=== PATIENT | female | born 1950 | race Caucasian/White ===

== ENCOUNTER 2016-08-11 06:25 | Day surgery (SDC) | payer MEDICARE, BC ==
[~2016-08-11 06:25] MED LIST: BUPIVACAINE HCL 0.75% INJ/PF (7.5 MG/1 ML) 10 ML SDV OS PRN; KETOROLAC TROMETHAMINE 0.45% 4 DROP/0.4 ML DROPERETTE OS PRN; LIDOCAINE 4% INJ/PF (40 MG/ML) 5 ML AMPUL OS PRN
[2016-08-11] MEDS ORDERED: MIDAZOLAM 2 MG/2 ML INJ ONE (06:44)
[2016-08-11] MEDS ORDERED: FENTANYL CITRATE INJ/PF 100 MCG/2 ML AMPUL ONE (06:44)
[2016-08-11] MEDS: TROPICAMIDE 1% OPH SOLN 3 ML OS PRN ×3 (06:44→07:21)
[2016-08-11] MEDS: CYCLOPENTOLATE 0.2%/PHENYLEPHRINE 1% OPH SOLN 2 ML OS PRN ×3 (06:44→07:21)
[2016-08-11] MEDS: BESIFLOXACIN HCL 0.6% OPH SUSP 5 ML BOTTLE OS PRN ×4 (06:45→08:01)
[2016-08-11] MEDS: TETRACAINE HCL 0.5% OPH SOLN 0.6 ML DROPERETTE OS PRN ×2 (06:46→07:22)
[2016-08-11] MEDS ORDERED: CHONDR SU A NA/HYALUR INTRAOC KIT (SURGICARE) ONE (07:13)
[2016-08-11] MEDS ORDERED: PHENYLEPHRINE/KETOROLAC 1%-0.3% 4 ML VIAL ONE (07:14)
--- NOTE | 2016-08-11 12:05 | [facility] DISCHARGE SUMMARY E ---
[facility] Discharge Summary NAME: ELYSSA WONG AGE: 66Y ADMITTED: 08/11/2016 DISCHARGED: 08/11/2016 PREOPERATIVE DIAGNOSIS: Cataract, left eye. POSTOPERATIVE DIAGNOSIS: Cataract, left eye. HOSPITAL COURSE: The patient is a 66-year-old lady who underwent uneventful cataract extraction with intraocular lens implant, left eye, on 08/11/2016. She will be discharged to home. She was instructed to resume preoperative medications, take Tylenol as needed for discomfort, to keep her eye shielded, to use Besivance, Durezol, and Ilevro at 3 p.m. and 8 p.m., and to followup in my office in 1 day. DICTATING PHYSICIAN: SANCHO BESALEY M.D. [id number] PHY#: [id number] ID: [id number] JOB#: [id number] ACCT: [id number] cc:SANCHO BEASLEY M.D. >
--- NOTE | 2016-08-11 12:14 | [facility] OPERATIVE REPORT E ---
[facility] Operative Report NAME: ELYSSA WONG AGE: 66Y DATE OF SURGERY: 08/11/2016 ROOM: PREOPERATIVE DIAGNOSIS: Cataract, left eye. POSTOPERATIVE DIAGNOSIS: Cataract, left eye. PROCEDURE PERFORMED: Phacoemulsification with posterior chamber intraocular lens, left eye. SURGEON: Joanne Beasley MD ANESTHESIA: Topical with MAC. INDICATIONS FOR SURGERY: Difficulty driving at night due to glare. Best corrected visual acuity 20/30. PROCEDURE: The patient was brought to the operating room and placed on the operative table. Following tetracaine drops, topical anesthesia was administered. This consisted of instrument wipe pledgets soaked in a solution of 4% Xylocaine mixed with 0.75% Marcaine in a 1:2 ratio. A 2 x 1 cm pledget was placed in the superior fornix. A 1 x 1 cm pledget was placed in the inferior fornix. The eye was patched shut for 5 minutes. The patch was removed. The eye was sterilely prepped and draped in the usual manner. Lid speculum was placed in the eye. The pledgets were removed. 4-0 black silk sutures were placed around the superior and the inferior rectus muscles to be used as traction. A conjunctival peritomy was made at the 10 o'clock position. Hemostasis was obtained with bipolar cautery. A posterior limbal groove was created using a crescent knife and dissected anteriorly towards the cornea. A sharp point blade was used to create a paracentesis site at the 2 o'clock position. A 2.4 mm keratome was used to enter the anterior chamber through the groove. Viscoelastic was injected into the anterior chamber. An anterior capsulotomy was performed using Utrata forceps in a capsulorrhexis fashion. Hydrodissection and hydrodelineation were performed. Phacoemulsification was performed in ewndgq-kda-jokamso technique. Total phaco time 50 seconds. Following this, the I/A unit was used to remove residual cortex. Viscoelastic was injected into the capsular bag. Intraocular lens model SN60WF, 23.0 diopters, serial number [id number] was placed in the capsular bag. The I/A unit was used to remove residual viscoelastic. The wound was seen to be watertight under high and low pressure, and no sutures were placed. The intraocular lens was well centered. The pressure was adjusted in the eye to normal pressure. The 4-0 black silk sutures and lid speculum were removed. The eye was shielded after Besivance drops were placed. The patient tolerated the procedure well and was sent to the recovery room in good condition. DICTATING PHYSICIAN: JOANNE BEASLEY M.D. [id number] PHY#: [id number] ID: [id number] JOB#: [id number] ACCT: [id number] cc:JOANNE BEASLEY M.D. >
== END 2016-08-11 09:02 | disposition home or self-care (01) ==
LOC: SC 06:25
PROVIDERS: ATTEND Ophthalmology
PROC: 08RJ3JZ Replacement of Right Lens with Synthetic Substitute, Percutaneous Approach (ICD-10-PCS; principal; 2016-08-11 07:30)
DX: H25.813 Combined forms of age-related cataract, bilateral (principal); H16.223 Keratoconjunctivitis sicca, not specified as Sjogren's, bilateral; I63.411 Cerebral infarction due to embolism of right middle cerebral artery; M06.09 Rheumatoid arthritis without rheumatoid factor, multiple sites; E78.00 Pure hypercholesterolemia, unspecified; M19.90 Unspecified osteoarthritis, unspecified site; K21.9 Gastro-esophageal reflux disease without esophagitis; I10 Essential (primary) hypertension; Z86.73 Personal history of transient ischemic attack (TIA), and cerebral infarction without residual deficits; Z88.5 Allergy status to narcotic agent; Z88.2 Allergy status to sulfonamides; Z88.8 Allergy status to other drugs, medicaments and biological substances
CPT/HCPCS: 66984; V2632; J2250; J3490 ×3; A9270; J3010; C9447; 142

== ENCOUNTER 2016-09-15 06:54 | Day surgery (SDC) | payer MEDICARE, BC ==
[~2016-09-15 06:54] MED LIST changes: +BUPIVACAINE HCL 0.75% INJ/PF (7.5 MG/1 ML) 10 ML SDV OD PRN; -BUPIVACAINE HCL 0.75% INJ/PF (7.5 MG/1 ML) 10 ML SDV OS PRN; +KETOROLAC TROMETHAMINE 0.45% 4 DROP/0.4 ML DROPERETTE OD PRN; -KETOROLAC TROMETHAMINE 0.45% 4 DROP/0.4 ML DROPERETTE OS PRN; +LIDOCAINE 4% INJ/PF (40 MG/ML) 5 ML AMPUL OD PRN; -LIDOCAINE 4% INJ/PF (40 MG/ML) 5 ML AMPUL OS PRN
[2016-09-15] MEDS: TROPICAMIDE 1% OPH SOLN 3 ML OD PRN ×3 (07:08→07:39)
[2016-09-15] MEDS: CYCLOPENTOLATE 0.2%/PHENYLEPHRINE 1% OPH SOLN 2 ML OD PRN ×3 (07:08→07:39)
[2016-09-15] MEDS: BESIFLOXACIN HCL 0.6% OPH SUSP 5 ML BOTTLE OD PRN ×3 (07:09→08:17)
[2016-09-15] MEDS ORDERED: CHONDR SU A NA/HYALUR INTRAOC KIT (SURGICARE) ONE (07:10)
[2016-09-15] MEDS: TETRACAINE HCL 0.5% OPH SOLN 0.6 ML DROPERETTE OD PRN ×2 (07:10→07:40)
[2016-09-15] MEDS ORDERED: PHENYLEPHRINE/KETOROLAC 1%-0.3% 4 ML VIAL ONE (07:11)
[2016-09-15] MEDS ORDERED: MIDAZOLAM 2 MG/2 ML INJ ONE (07:33)
--- NOTE | 2016-09-15 08:49 | [facility] OPERATIVE REPORT E ---
[facility] Operative Report NAME: ELYSSA WONG AGE: 66Y DATE OF SURGERY: 09/15/2016 ROOM: PREOPERATIVE DIAGNOSIS: Cataract, right eye. POSTOPERATIVE DIAGNOSIS: Cataract, right eye. PROCEDURE PERFORMED: Phacoemulsification with posterior chamber intraocular lens, right eye. SURGEON: SANCHO BEASLEY M.D. ANESTHESIA: Topical with MAC. INDICATIONS FOR SURGERY: Difficulty with glare with night driving. Best corrected visual acuity 20/25. PROCEDURE: The patient was brought to the Operating Room and placed on the operative table. Following tetracaine drops, topical anesthesia was administered. This consisted of instrument wipe pledgets soaked in a solution of 4% Xylocaine mixed with 0.75% Marcaine in a 1:2 ratio. A 2 x 1 cm pledget was placed in the superior fornix. A 1 x 1 cm pledget was placed in the inferior fornix. The eye was patched shut for 5 minutes. The patch was removed. The eye was sterilely prepped and draped in the usual manner. Lid speculum was placed in the eye. The pledgets were removed. 4-0 black silk sutures were placed around the superior and the inferior rectus muscles to be used as traction. A conjunctival peritomy was made at the 10 o'clock position. Hemostasis was obtained with bipolar cautery. A posterior limbal groove was created using a crescent knife and dissected anteriorly towards the cornea. A sharp point blade was used to create a paracentesis site at the 2 o'clock position. A 2.4 mm keratome was used to enter the anterior chamber through the groove. Viscoelastic was injected into the anterior chamber. An anterior capsulotomy was performed using Utrata forceps in a capsulorrhexis fashion. Hydrodissection and hydrodelineation were performed. Phacoemulsification was performed in pyscjx-esr-kefsmqw technique. A total of 6.81 CDE phaco time was used. Following this, the I/A unit was used to remove residual cortex. Viscoelastic was injected into the capsular bag. Intraocular lens model SN60WF, 23.5 diopters, serial number [id number] was placed in the capsular bag. The I/A unit was used to remove residual viscoelastic. The wound was seen to be watertight under high and low pressure, and no sutures were placed. The intraocular lens was well centered. The pressure was adjusted in the eye to normal pressure. The 4-0 black silk sutures and lid speculum were removed. The eye was shielded after Besivance drops were placed. The patient tolerated the procedure well and was sent to the Recovery Room in good condition. DICTATING PHYSICIAN: SANCHO BEASLEY M.D. [id number] PHY#: [id number] ID: [id number] JOB#: [id number] ACCT: [id number] cc:SANCHO BEASLEY M.D. >
--- NOTE | 2016-09-15 08:51 | [facility] DISCHARGE SUMMARY E ---
[facility] Discharge Summary NAME: ELYSSA WONG AGE: 66Y ADMITTED: 09/15/2016 DISCHARGED: 09/15/2016 HOSPITAL COURSE: The patient is a 66-year-old lady who underwent uneventful cataract extraction with intraocular lens implant right eye on 09/15/2016. She will be discharged to home. She is instructed to resume preoperative medications, take Tylenol as needed for discomfort, to keep her eye shielded, to use Besivance, Durezol, and Ilevro at 3 p.m. and 8 p.m., and to follow up in my office in 1 day. DICTATING PHYSICIAN: SANCHO BEASLEY M.D. [id number] PHY#: [id number] ID: [id number] JOB#: [id number] ACCT: [id number] cc:SANCHO BEASLEY M.D. >
== END 2016-09-15 09:15 | disposition home or self-care (01) ==
LOC: SC 06:54
PROVIDERS: ATTEND Ophthalmology
PROC: 08RJ3JZ Replacement of Right Lens with Synthetic Substitute, Percutaneous Approach (ICD-10-PCS; principal; 2016-09-15 08:00)
DX: H25.811 Combined forms of age-related cataract, right eye (principal); Z96.1 Presence of intraocular lens; I10 Essential (primary) hypertension; K21.9 Gastro-esophageal reflux disease without esophagitis; Z79.899 Other long term (current) drug therapy; Z86.73 Personal history of transient ischemic attack (TIA), and cerebral infarction without residual deficits; Z88.1 Allergy status to other antibiotic agents; Z87.891 Personal history of nicotine dependence
CPT/HCPCS: 66984; V2632; J2250; J3490 ×3; A9270; C9447; 142

== ENCOUNTER 2016-10-04 17:36 | Emergency (ER) | payer MEDICARE, BC ==
[~2016-10-04 17:36] MED LIST changes: -BUPIVACAINE HCL 0.75% INJ/PF (7.5 MG/1 ML) 10 ML SDV OD PRN; -KETOROLAC TROMETHAMINE 0.45% 4 DROP/0.4 ML DROPERETTE OD PRN; -LIDOCAINE 4% INJ/PF (40 MG/ML) 5 ML AMPUL OD PRN; +SUCCINYLCHOLINE CHLORIDE INJ 200 MG/10 ML VIAL ONE
--- NOTE | 2016-10-04 17:47 | ER Document Report ---
ED Neuro Symptoms/Deficit - General Mode of Arrival: Medic Information source: Emergency Med Personnel Notes: Patient is a 66-year-old female who presents to the emergency department today with complaints of stroke-like symptoms with a last known well time of 1300 this afternoon. According to EMS, around 1300 the patient complained to her about not feeling well, stating she had a headache and felt generally weak. EMS states the patient took a shower and then asked to be left alone to take a nap. EMS reports that the found her minimally responsive several hours later. EMS reports on arrival, the patient had a blood pressure of 190/110. EMS states the patient would utter "1 or 2 words" but would not converse appropriately. On arrival here, the patient is alert and oriented 3, she is able to state that she is at [facility], her full name, and the year. Patient has had 2 CVAs in the past 2 years with the most recent one being in March of 2016. According to EMS, the stated that there were no lasting neurological deficits. EMS states that the patient vomited in route to this facility. EMS states that the only medication that the patient had at home was cholesterol medication, blood pressure medication, and GERD medication. There were no blood thinners. TRAVEL OUTSIDE OF THE [place] IN LAST 30 DAYS: No - HPI Symptoms are: Worse/persistent Severity: Severe Was STROKE ALERT Called: Yes Baseline Cognitive: Alert, oriented X 3 New weakness: LUE, LLE Altered sensation: LUE, LLE Similar symptoms previously: Yes <ANGELA CLAY - Last Filed: 10/04/16 18:43> <MICAELA LUNA - Last Filed: 10/04/16 23:03> - General Stated Complaint: POSSIBLE STROKE - Related Data Allergies/Adverse Reactions: promethazine [From Phenergan] Allergy (Severe, Verified 10/04/16 21:30) UNCONSCIOUS cephalexin [From Keflex] Allergy (Intermediate, Verified 10/04/16 21:30) Hives latex Allergy (Intermediate, Verified 10/04/16 21:30) rash with contact codeine Allergy (Mild, Verified 10/04/16 21:30) NAUSEA/VOMITING iodine Allergy (Mild, Verified 10/04/16 21:30) RASH Sulfa (Sulfonamide Antibiotics) Allergy (Mild, Verified 10/04/16 21:30) NAUSEA/VOMITING Home Medications: Current Home Medications Esomeprazole Magnesium [Nexium] 20 mg PO QAM 10/04/16 [History] Simvastatin [Simvastatin] 20 mg PO QHS 10/04/16 [History] Past Medical History - General Information source: Emergency Med Personnel, [facility] Records - Social History Smoking Status: Unknown if Ever Smoked Lives with: Spouse/Significant other Family History: Reviewed & Not Pertinent - Past Medical History Cardiac Medical History: Reports: Hx Hypertension - medicated Neurological Medical History: Reports: Hx Cerebrovascular Accident - 2015/mar/FAMILY HAS NOTICED SOME MEMORY LOSS-PT DENIES HOWEVER Past Surgical History: Reports: Hx Hysterectomy, Hx Mastectomy - BILATERAL, NO CANCER <ANGELA CLAY - Last Filed: 10/04/16 18:43> Review of Systems - Review of Systems -: Yes ROS unobtainable due to patient's medical condition <ANGELA CLAY - Last Filed: 10/04/16 18:43> Physical Exam - Notes Notes: PHYSICAL EXAM GENERAL: Somewhat somnolent but patient is able to state that she is at [facility], her full name, and the year. HEAD: Normocephalic, atraumatic. EYES: Pupils constricted but equal and reactive to light. Right sided lateral gaze, does not appear to be able see or track to the left. ENT: Oral mucosa moist, tongue midline. NECK: Full range of motion. Supple. Trachea midline. LUNGS: Clear to auscultation bilaterally, no wheezes, rales, or rhonchi. No respiratory distress. HEART: Regular rate and rhythm. No murmurs, gallops, or rubs. ABDOMEN: Obese, soft, non-tender. Non-distended. Bowel sounds present in all 4 quadrants. EXTREMITIES: No edema, radial and dorsalis pedis pulses 2/4 bilaterally. No cyanosis. NEUROLOGICAL: Alert and oriented x3, somnolent but able to speak without difficulty, answering appropriately that she is currently at [facility], her full name, and the year. Left sided hemiparesis. Does not withdraw to pain to the left lower and left upper extremity, does withdraw to pain to right lower and right upper extremity. One twitch in left lower extremity during exam which was non-intentional. Spontaneous purposeful movements in right upper and lower extremity. PSYCH: Unable to assess SKIN: Warm, dry, normal turgor. No rashes or lesions noted. <ANGELA CLAY - Last Filed: 10/04/16 18:43> - Vital signs Vitals: Pulse Ox 100 10/04/16 18:22 <VICKIELOUMICAELA - Last Filed: 10/04/16 23:03> Course - Laboratory Result Diagrams: 10/04/16 17:39 10/04/16 17:39 <ANGELA CLAY - Last Filed: 10/04/16 18:43> - Re-evaluation Re-evalutation: 10/04/16 18:35 CAT scan shows large frontal parenchymal hemorrhage with midline shift and subarachnoid hemorrhage as well. Patient's level of consciousness is rapidly decreasing and she cannot move the left side of her body. Discussed intubation with her, her and her daughter and they all agree with intubation. Patient was intubated without difficulty, started on a propofol drip and we did eventually add Versed. Cardene drip was added as well for blood pressure control. Discussed the patient with Dr. Correa neurosurgery nursing information systems coordinator from [facility], he is accepting the patient on behalf of the MICU attending. Patient will be transferred via helicopter. I did discuss the gravity of the situation with the family members. 10/04/16 18:36 Once CBC unremarkable, CMP unremarkable, chest x-ray shows low lung volumes with minimal vascular congestion, urine drug screen is pending. Coags are unremarkable. 10/04/16 22:58 Helicopter is not actually able to fly, critical care transport truck is here now, patient's blood pressure has been well controlled on Cardene drip also aided by propofol which was used for sedation. Patient was also placed on a Versed drip for sedation. Patient is having some tachycardia at this time. Patient's pupils are rechecked and they are still constricted but reactive. No evidence of blown pupil. Patient is stable for transport. 10/04/16 23:01 Patient did develop a fever likely result of intracranial hemorrhage. Patient is being given rectal Tylenol for this. 10/04/16 23:02 X-ray shows ET tube and NG tube to be in good position. Andres was placed as well. - Vital Signs Vital signs: Temp Pulse Resp BP Pulse Ox 100 10/04/16 18:22 - Laboratory Result Diagrams: 10/04/16 17:39 10/04/16 17:39 Laboratory results interpreted by me: 10/04/16 10/04/16 17:39 17:39 RDW 14.4 H Seg Neutrophils % 78.5 H Glucose 143 H - EKG Interpretation by Me Additional EKG results interpreted by me: 10/04/16 18:36 10/04/16 18:37 EKG shows sinus rhythm at a rate of 98, normal axis, normal intervals, no ST segment elevations or depressions, no T-wave inversions per my interpretation. <MICAELA LUNA - Last Filed: 10/04/16 23:03> Procedures - Intubation Orotracheal Airway evaluation: Normal anatomy Mallampati Classification: Class 2 Medications: Lidocaine, Etomidate, Succinylcholine Intubation method: Orotracheal Blade type: Tiana Blade size: 3 Equipment used: Glidescope ETT size: 7.0 ETT secured at: Teeth ETT secured at (cm): 21 Breath Sounds after Intubation: Equal End tidal CO2 confirmed: Yes Ventilator settings: SIMV Tidal volume: 450 FiO2: 30 Respirations: 14 Pressure support: 10 PEEP: 5 Post Intubation Xray: Yes Intubation Complications: O2 saturation decreased <MICAELA LUNA - Last Filed: 10/04/16 23:03> Critical Care Note - Critical Care Note Total time excluding time spent on procedures (mins): 55 <MICAELA LUNA - Last Filed: 10/04/16 23:03> ED Alteplase Inc/Exc Criteria - Date/Time patient last known well: Date/Time: 10/04/2016 1300 - Date/Time patient arrived in ED: _: 10/04/2016 1936 - Inclusion Criteria: 1: Patient presented to ED within 3 hours of acute ischemic stroke symptom onset ? 2: Did baseline CT exclude intracranial hemorrhage and/or other risk factors? -: No 3: Is the age of the patient 18 years of age or greater? : If any of the above questions are answered "NO" then stop, patient is not a candidate for Alteplase, : If all of the above questions are answered "YES" then continue with Exclusion Criteria. - Exclusion Criteria: 1: Is there evidence of intracranial hemorrhage on baseline CT? -: Yes 2: Is there suspicion of subarachnoid hemorrhage (even if CT negative)? 3: Is there a history of serious head trauma, recent previous stroke or MA within 3 months? 4: Does the patient have a clinical presentation consistent with MA or post-MA pericarditis? 5: Is there history of intracranial hemorrhage? 6: On repeated measurement is Systolic BP greater than 185mmHg or Diastolic BP greater that 110 mmHg and is aggressive treatment needed to reduce blood pressure to these limits (e.g. constant infusion of an anti-hypertensive)? 7: Did the patient awake with stroke symptoms? 8: Has the patient had a lumbar puncture or an arterial puncture at a non- compressile site within 7 days? 9: With in the last 14 days did the patient have surgery or major trauma? 10: Is the patient or less than 2 weeks? 11: Was there any active bleeding or acute trauma? 12: Does the patient have intracranial neoplasm, arteriovenous malformation or aneurysm? 13: Does the patient have abnormal glucose (less than 50 or greater than 400mg/ dl)? Record glucose in Comment. 14: Patient has rapidly improving symptoms at the time Alteplase is to be Administered. 15: Does the patient have any risks for bleeding, including but not limited to: a.: Current use of Coumadin with PT greater than 15 seconds or INR greater than 1.7. b.: Current use of Pradaxa (Dabigatran). c.: Heparin administereed within the past 48 hours and PTT elevated. d.: Platelet count less than 100,000/mm. e.: Major surgery or serious trauma within 14 days. f.: Gastrointestinal or gynecological urinary bleeding within 14 days. g.: Myocardial Infarction (MA) within 3 months. : If the answer to any of the above questions is "YES" then stop, the patient is not a candidate for Alteplase. : If the answer to all of the above questions is "NO" then the patient may be eligible for the Administration of Alteplase. : If the patient is noted to have seizure activity at onset of Stroke symptoms; Consult Neurologist for further evaluation. - The patient is: -: Included and is eligible to receive Alteplase. *Initiate bed placement at higher level of care* Reviewd risks & benefits of thrombolytic therapy: I have reviewed the risks and benefits of thrombolytic therapy with the patient and/or his/her family. -: Excluded and not eligible to receive Alteplase for the above exclusions. --: Yes -: Excluded and not eligible to receive Alteplase for other reasons (specify in comments): - Diagnosis of TIA: -: Patient presented with transient symptoms that are now resolved and no other neurologic findings are currently present. List symptoms in comments. -: Patient is NOT a candidate for tPA. -: Yes -: ____(put name in comment) has been consulted for admission and continued evaluation of risk factor assessment. <MICAELA LUNA - Last Filed: 10/04/16 23:03> ED NIH Stroke Scale - NIH Stroke Scale When completed:: Protocol *: 1. NIH scale should be completed with appropriate accompanying assessment tools. *: 2. The NIH should reflect what the patient is capable of doing and should not be coached by the clinician. 1a. Level of Consciousness: 0=Alert;keenly responsive -: 1=Drowsy -: 2=Obtunded -: 3=Coma/unresponsive or reflex to noxious stimuli. 1a. Responses: 1 1b. Orientation Questions: a. What month is it? -: b. How old are you? -: 0=Answers both questions correctly. -: 1=Answers one question correctly or patient is intubated or has orotracheal trauma. -: 2=Answers neither question correctly. 1b. Responses: 0 1c. Response to commands: a. Open and close eyes? -: b. Remote Sensing Research Scientist and release hand? -: Credit is given despite weakness. Demonstration of task is permitted. Substitute command if hands cannot be used. -: 0=Performs both tasks correctly -: 1=Performs one task correctly -: 2=Performs neither task correctly 1c. Responses: 0 2. Gaze: Establish eye contact and instruct patient to "Follow my finger" -: 0=Normal -: 1=Partial gaze palsy. Gaze is abnormal in one or both eyes, but where forced deviation or total gaze paresis is not present. -: 2=Forced deviation or total gaze paresis. 2. Responses: 2 3. Visual Pen[place]za: Sees fingers in all four quadrants. -: 0=No visual loss. -: 1=Partial hemianopsia. -: 2=Complete hemianopsia. -: 3=Bilateral hemianopsia (including Cortical blindness) 4. Facial Movement: Instruct patient to: -: a. Show me your teeth -: b. Raise your eyebrows -: c. Close your eyes -: d. Smile -: 0=Normal symmetrical movement -: 1=Minor paralysis (flattened nasolabial fold, asymmetry on smiling). -: 2=Partial paralysis (total or near total paralysis of lower face). -: 3=Complete paralysis of upper and lower face 4. Responses: 1 5. Motor functions (left arm): Alternate sides and extend each arm with palms down (90 degrees if sitting or 45 degrees for supine). -: 0=No drift;limb holds for full 10 seconds. -: 1=Drift; limb holds but drifts down before full 10 seconds, but does not hit bed. -: 2=Some effort against gravity; limb cannot get to or maintain position. -: 3=No effort against gravity; limb falls. -: 4=No movement. -: UN=Amputation, joint fusion, explain in comments. 5. Responses (left arm): 4 5. Motor Functions (right arm): Alternate sides and extend each arm with palms down (90 degrees if sitting or 45 degrees for supine). -: 0=No drift;limb holds for full 10 seconds. -: 1=Drift; limb holds but drifts down before full 10 seconds, but does not hit bed. -: 2=Some effort against gravity; limb cannot get to or maintain position. -: 3=No effort against gravity; limb falls. -: 4=No movement. -: UN=Amputation, joint fusion, explain in comments. 5. Responses (right arm): 0 6. Motor Functions (left leg): With patient lying supine, alternate sides and extend each leg (30 degrees always while supine). -: 0=No drift, leg holds position for full 5 seconds -: 1=Drift; leg falls before full 5 seconds but does not hit bed. -: 2=Some effort against gravity, leg falls to bed but some effort against gravity. -: 3=No effort against gravity, leg falls to bed immediately. -: 4=No movement. -: UN=Amputation, joint fusion; explain in comments. 6. Responses (left leg): 4 6. Motor Functions (right leg): With patient lying supine, alternate sides and extend each leg (30 degrees always while supine). -: 0=No drift, leg holds position for full 5 seconds -: 1=Drift; leg falls before full 5 seconds but does not hit bed. -: 2=Some effort against gravity, leg falls to bed but some effort against gravity. -: 3=No effort against gravity, leg falls to bed immediately. -: 4=No movement. -: UN=Amputation, joint fusion; explain in comments. 6. Responses (right leg): 0 7. Limb Ataxia: With eyes open instruct patient to: -: a. "Touch your finger to your nose". -: b. "Touch your heel to your torrez" -: 0=Absent -: 1=Present in one limb. -: 2=Present in two limbs. -: UN=Amputation or joint fusion; explain in comments. 8. Sensory: Test sensation using pinprick or noxious stimuli. Test as many body parts as possible. -: 0=Normal;no sensory loss -: 1=Mile to moderate sensory loss (patient feels pin prick but is less sharp on affected side). -: 2=Severe or total sensory loss. 8. Responses: 2 9. Best Language: Instruct patient to: -: a. "Describe what you see in this picture." -: b. "Name the items in this picture." -: c. "Read these sentences." -: 0=No aphasia, normal -: 1=Mild to moderate aphasia. -: 2=Severe aphasia -: 3=Mute, global aphasia, no usable speech or auditory comprehension. 10. Articulation, Dysarthia: Instruct patient to: -: "Read these words" or "Repeat these words" -: 0=Normal -: 1=Mild to moderate; patient may slur some words but can be understood without difficulty. -: 2=Severe; patients speech so slurred as to be unintelligible in the absence of dysphasia. -: UN=Intubated or other physical barrier, explain in comments. 11. Extinction or inattention: 0=No abnormality -: 1= Visual, tactile, auditory, spatial, or personal inattention or extinction to bilateral simulation in one or the sensory modalities. -: 2=Profound alfreda-inattention or alfreda-inattention to more than one modality; does not recognize own hand. Total Score: 14 <MICAELA LUNA - Last Filed: 10/04/16 23:03> Discharge <ANGELA CLAY - Last Filed: 10/04/16 18:43> - Discharge Scribe Attestation: 10/04/16 23:02 I personally performed the services described in the documentation, reviewed and edited the documentation which was dictated to the scribe in my presence, and it accurately records my words and actions. <MICAELA LUNA - Last Filed: 10/04/16 23:03> - Discharge Clinical Impression: Spontaneous intraparenchymal intracranial hemorrhage, acute Condition: Critical Disposition: [facility] Scribe Documentation - Scribe Written by Juan:: Juan Perez, 10/04/2016 190 acting as scribe for :: Gustabo <ANGELA CLAY - Last Filed: 10/04/16 18:43>
[2016-10-04 17:48] LABS: ABSOLUTE BASOPHILS # (AUTO) 0.1 10^3/uL (0.0-0.2); ABSOLUTE LYMPHOCYTES (AUTO) 1.7 10^3/uL (0.5-4.7); ABSOLUTE MONOCYTES (AUTO) 0.3 10^3/uL (0.1-1.4); ABSOLUTE NEUT (AUTO) 7.5 10^3/uL (1.7-8.2); BASOPHILS % (AUTO) 0.5 % (0-2); EOSINOPHILS % (AUTO) 0.5 % (0-6); HEMATOCRIT 39.5 % (36.0-47.0); HEMOGLOBIN 13.1 g/dL (12.0-15.5); HGB HCT DIFFERENCE -0.2; LYMPHOCYTES % (AUTO) 17.3 % (13-45); MEAN CORPUSCULAR HEMOGLOBIN 29.2 pg (27.0-33.4); MEAN CORPUSCULAR VOLUME 89 fl (80-97); MONOCYTES % (AUTO) 3.2 % (3-13); RED BLOOD COUNT 4.47 10^6/uL (3.72-5.28); RED CELL DISTRIBUTION WIDTH 14.4 % (11.5-14.0); SEGMENTED NEUTROPHILS % (AUTO) 78.5 % (42-78); WHITE BLOOD COUNT 9.6 10^3/uL (4.0-10.5)
[2016-10-04 17:53] LABS: PROTHROMBIN TIME 11.9 SEC (11.4-15.4)
[2016-10-04 17:55] LABS: PARTIAL THROMBOPLASTIN TIME 27.5 SEC (23.5-35.8)
[2016-10-04] MEDS ORDERED: LIDOCAINE 2% INJ-PF (100 MG/5 ML) SYRINGE ONE (17:58)
[2016-10-04] MEDS ORDERED: ETOMIDATE INJ/PF 20 MG/10 ML SDV IV ONE ×2 (17:58→18:15)
[2016-10-04] MEDS ORDERED: PROPOFOL 100 ML IV ONE (17:59)
--- NOTE | 2016-10-04 18:01 | RADIOLOGY REPORT (SQ) ---
EXAM DESCRIPTION: CT HEAD WITHOUT COMPLETED DATE/TIME: 10/04/2016 5:50 pm REASON FOR STUDY: t1 stroke alewrt COMPARISON: 2016 TECHNIQUE: Axial images acquired through the brain without intravenous contrast. Images reviewed wi th bone, brain and subdural windows. Images stored on PACS. All CT scanners at this facility use dose modulation, iterative reconstruction, and/or weight based d osing when appropriate to reduce radiation dose to as low as reasonably achievable (ALARA). [facility]: Dose Right [facility]: CareDose [facility]: Dose Right [facility]: Teradose 4D [facility]: [employer] RADIATION DOSE: Up-to-date CT equipment and radiation dose reduction techniques were employed. CTDIv ol: 64.6 mGy. DLP: 1551 mGy-cm. mGy. LIMITATIONS: None. FINDINGS: VENTRICLES: Effacement of the right lateral ventricle due to hematoma, described below at least 7 mm of right to left shift. . CEREBRUM: Large acute appearing right frontal parenchymal hematoma measures at least 6.5 cm maximally . Regional edema. Trace regional subarachnoid blood. Small vessel disease is otherwise noted. CEREBELLUM: No masses. No hemorrhage. No alteration of density. No evidence for acute infarction. EXTRAAXIAL SPACES: No fluid collections. No masses. ORBITS AND GLOBE: No intra- or extraconal masses. Normal contour of globe without masses. CALVARIUM: No fracture. PARANASAL SINUSES: No fluid or mucosal thickening. SOFT TISSUES: No mass or hematoma. OTHER: No other significant finding. IMPRESSION: 1. Large acute right frontal parenchymal hematoma with regional mass effect and right t o left shift as above. Pertinent positive or negative findings of the imaging study reported as a CRITICAL EXAM to MICAELA LIU DO at17:55 on 10/04/2016. Category of Critical Exam: Stroke alert, intracranial hemorrhage. TECHNICAL DOCUMENTATION: JOB ID: [id number] Quality ID # [id number]: Final reports with documentation of one or more dose reduction techniques (e.g., Au tomated exposure control, adjustment of the mA and/or kV according to patient size, use of iterative reconstruction technique) 2010 [employer]- All Rights Reserved
--- NOTE | 2016-10-04 18:02 | RADIOLOGY REPORT (SQ) ---
EXAM DESCRIPTION: CHEST SINGLE VIEW COMPLETED DATE/TIME: 10/04/2016 5:55 pm REASON FOR STUDY: t1 stroke alewrt COMPARISON: 12/05/2015. NUMBER OF VIEWS: One view. TECHNIQUE: Single frontal radiographic view of the chest acquired. LIMITATIONS: None. FINDINGS: LUNGS AND PLEURA: Relatively low lung volumes with resultant vascular crowding. No acute pneumonia or suspected edema. Minimal vascular congestion. MEDIASTINUM AND HILAR STRUCTURES: No masses. Contour normal. HEART AND VASCULAR STRUCTURES: Stable heart size. BONES: Osteopenic. HARDWARE: None in the chest. OTHER: No other significant finding. IMPRESSION: Low lung volumes with minimal vascular congestion. Otherwise, no acute findings. TECHNICAL DOCUMENTATION: JOB ID: [id number] [employer]- All Rights Reserved
[2016-10-04 18:05] LABS: ALANINE AMINOTRANSFERASE 26 U/L (9-52); ALBUMIN 4.2 g/dL (3.5-5.0); ALKALINE PHOSPHATASE 107 U/L (38-126); ANION GAP 10 (5-19); ASPARTATE AMINO TRANSFERASE 21 U/L (14-36); BILIRUBIN,DIRECT 0.2 mg/dL (0.0-0.4); BILIRUBIN,TOTAL 0.5 mg/dL (0.2-1.3); BLOOD UREA NITROGEN 12 mg/dL (7-20); CALCIUM 9.6 mg/dL (8.4-10.2); CARBON DIOXIDE 26 mmol/L (22-30); CHLORIDE 102 mmol/L (98-107); CREATINE KINASE 58 U/L (30-135); CREATININE RESULT 0.75 mg/dL (0.52-1.25); GLUCOSE 143 mg/dL (75-110); POTASSIUM 4.5 mmol/L (3.6-5.0); SODIUM 138.1 mmol/L (137-145); TOTAL PROTEIN 7.4 g/dL (6.3-8.2)
[2016-10-04] MEDS ORDERED: SUCCINYLCHOLINE CHLORIDE INJ 200 MG/10 ML VIAL IV ONE (18:15)
[2016-10-04] MEDS ORDERED: MANNITOL 500 ML IV ONE ×2 (18:15→18:27)
[2016-10-04 18:16] LABS: CREATINE KINASE MB 0.24 ng/mL (<4.55)
[2016-10-04 18:17] LABS: TROPONIN I < 0.012 ng/mL
[2016-10-04] MEDS ORDERED: PROPOFOL 100 ML IV PRN (18:18)
[2016-10-04] MEDS ORDERED: NICARDIPINE HCL RTU, ISO-OS 200 ML IV PRN (18:22)
[2016-10-04 18:33] LABS: APPEARANCE,URINE CLEAR; BILIRUBIN,URINE NEGATIVE (NEGATIVE); GLUCOSE, URINE NEGATIVE (NEGATIVE); KETONES,URINE NEGATIVE (NEGATIVE); LEUKOCYTE ESTERASE,URINE NEGATIVE (NEGATIVE); NITRITE,URINE NEGATIVE (NEGATIVE); PROTEIN,URINE 100 mg/dL (NEGATIVE); URINE SPECIFIC GRAVITY 1.012; UROBILINOGEN,URINE NEGATIVE mg/dL (<2.0)
[2016-10-04] MEDS ORDERED: MIDAZOLAM HCL 100 ML IV PRN (18:34)
[2016-10-04] MEDS ORDERED: LIDOCAINE 2% INJ-PF (100 MG/5 ML) SYRINGE IV ONE (19:39)
--- NOTE | 2016-10-04 20:06 | RADIOLOGY REPORT (SQ) ---
EXAM DESCRIPTION: CHEST SINGLE VIEW COMPLETED DATE/TIME: 10/04/2016 7:53 pm REASON FOR STUDY: Verify intubation and OG placement COMPARISON: Single-view chest from earlier. FINDINGS: Portably obtained AP single view of the chest timed 1932 hours. Endotracheal tube looks appropriate, above the afia with tip grossly at the level of the clavicles. Nasogastric tube is down, appropriately within the stomach. Slightly improved lung aeration generally. IMPRESSION: Appropriate endotracheal and nasogastric tubes. TECHNICAL DOCUMENTATION: JOB ID: [id number]
--- NOTE | 2016-10-04 22:01 | EKG REPORT ---
SEVERITY:- ABNORMAL ECG - SINUS RHYTHM LEFT ATRIAL ABNORMALITY : Confirmed by: Leonel Fairbanks MD 04-Oct-2016 22:01:04
[2016-10-04] MEDS ORDERED: ACETAMINOPHEN 650 MG SUPP.RECT PR ONE (22:03)
[2016-10-04 23:09] VITALS: BP 111/68
== END 2016-10-04 23:15 | disposition short-term general hospital (02) ==
LOC: ER 17:36
PROC: 0BH17EZ Insertion of Endotracheal Airway into Trachea, Via Natural or Artificial Opening (ICD-10-PCS; principal; 2016-10-04)
DX: I62.9 Nontraumatic intracranial hemorrhage, unspecified (principal); R53.1 Weakness; R51 Headache; Z79.899 Other long term (current) drug therapy
CPT/HCPCS: 31500; 93005; 99291; 51702; 96365; 96366; 36415; 82553; 82550; 85025; 85610; 85730; 80053; 81001; 84484; 71010; 70450; 93010; A9270; J2704; J2001; J0330; J2250; J2150; J3490